=== PATIENT | male | born 1965 | race Two or more races ===

== ENCOUNTER 2016-10-17 03:18 | Inpatient (IN) | payer MEDICARE, MEDICAID ==
[~2016-10-17] VITALS: Ht 167.6 cm; Wt 69.9 kg
[2016-10-17 05:30] VITALS: BP 121/75
[2016-10-17 06:00] VITALS: BP 132/75
[2016-10-17] MEDS ORDERED: ACETAMINOPHEN 325 MG TABLET PO PRN (06:00)
[2016-10-17] MEDS ORDERED: ZOLPIDEM TARTRATE 5 MG TABLET PO PRN (06:00)
[2016-10-17] MEDS ORDERED: MAGNESIUM HYDROXIDE 30 ML UDC PO PRN (06:00)
[2016-10-17] MEDS ORDERED: MAG HYDROX/AL HYDROX/SIMETH 30 ML UDC PO PRN (06:00)
[2016-10-17] MEDS ORDERED: ONDANSETRON HCL/PF 4 MG/2 ML VIAL IVP PRN (06:00)
[2016-10-17] MEDS ORDERED: HYDROCODONE/APAP 5/325MG 1 EACH TABLET PO PRN (06:00)
[2016-10-17] MEDS ORDERED: Z GUARD REMEDY 2 OZ OINT TP PRN (06:00)
[2016-10-17 07:30] LABS: BASOPHILS % (AUTO) 0.2 % (0.0-2.0); DIFF TOTAL % 100 %; EOSINOPHILS # (AUTO) 0.1 /CMM (0.0-0.7); EOSINOPHILS % (AUTO) 0.7 % (0.0-6.0); HEMATOCRIT 33 % (39-51); HEMOGLOBIN 11.4 g/dL (13.5-17.5); LYMPHOCYTES # (AUTO) 3.1 /CMM (0.8-4.8); MEAN CORPUSCULAR HEMOGLOBIN 28 PG (26.0-33.0); MEAN CORPUSCULAR HGB CONC 34 g/dl (31.0-36.0); MEAN CORPUSCULAR VOLUME 82 fL (80-96); MONOCYTES # (AUTO) 0.8 /CMM (0.1-1.30); NEUTROPHILS # (AUTO) 5.3 /CMM (1.8-8.9); NEUTROPHILS % (AUTO) 57.1 % (43.0-81.0); PLATELET COUNT (AUTO) 231 /CMM (150-450); RED BLOOD CELL COUNT(AUTO) 4.07 MIL/uL (4.5-6.0); WHITE BLOOD COUNT (AUTO) 9.3 K/uL (4.3-11.0)
[2016-10-17 08:28] LABS: ALBUMIN 2.8 g/dL (3.4-5.0); BILIRUBIN,TOTAL 0.4 mg/dL (0.2-1.0); CALCIUM, SERUM 8.2 mg/dL (8.5-10.1); CREATININE 1.1 mg/dL (0.6-1.3); PHOSPHORUS 2.9 mg/dL (2.5-4.9); POTASSIUM 4.3 mmol/L (3.5-5.1)
[2016-10-17] MEDS ORDERED: IV SET PRIMARY PUMP SET 1 EA INFUS.SET MC ONE (11:34)
[2016-10-17] MEDS: AZITHROMYCIN 500 MG in IV D5W 250 ML IV SCH (11:53)
[2016-10-17] MEDS: CEFTRIAXONE 1 G in IV D5W 50 ML IV SCH (12:51)
[2016-10-17 16:00] VITALS: BP 109/62
[2016-10-17] MEDS: PANTOPRAZOLE 40 MG TABLET.DR PO SCH (16:50)
[2016-10-17 20:13] VITALS: BP 113/68
[2016-10-17 22:00] VITALS: BP 113/68
[2016-10-18 07:36] LABS: BASOPHILS % (AUTO) 0.3 % (0.0-2.0); DIFF TOTAL % 100 %; EOSINOPHILS # (AUTO) 0.4 /CMM (0.0-0.7); EOSINOPHILS % (AUTO) 5.1 % (0.0-6.0); HEMATOCRIT 37 % (39-51); HEMOGLOBIN 12.4 g/dL (13.5-17.5); LYMPHOCYTES # (AUTO) 2.8 /CMM (0.8-4.8); LYMPHOCYTES % (AUTO) 40.9 % (20.0-44.0); MEAN CORPUSCULAR HEMOGLOBIN 28 PG (26.0-33.0); MEAN CORPUSCULAR HGB CONC 34 g/dl (31.0-36.0); MEAN CORPUSCULAR VOLUME 82 fL (80-96); MONOCYTES # (AUTO) 0.6 /CMM (0.1-1.30); MONOCYTES % (AUTO) 8.8 % (2.0-12.0); NEUTROPHILS # (AUTO) 3.1 /CMM (1.8-8.9); NEUTROPHILS % (AUTO) 44.9 % (43.0-81.0); PLATELET COUNT (AUTO) 254 /CMM (150-450); RED BLOOD CELL COUNT(AUTO) 4.48 MIL/uL (4.5-6.0); WHITE BLOOD COUNT (AUTO) 6.9 K/uL (4.3-11.0)
[2016-10-18 07:37] LABS: CALCIUM, SERUM 8.7 mg/dL (8.5-10.1); CREATININE 1.2 mg/dL (0.6-1.3); PHOSPHORUS 2.4 mg/dL (2.5-4.9); POTASSIUM 4.3 mmol/L (3.5-5.1)
[2016-10-18 08:00] VITALS: BP 121/67
[2016-10-18] MEDS: PANTOPRAZOLE 40 MG TABLET.DR PO SCH (08:26)
[2016-10-18] MEDS ORDERED: IV SET PRIMARY PUMP SET 1 EA INFUS.SET MC ONE (09:54)
[2016-10-18] MEDS: AZITHROMYCIN 500 MG in IV D5W 250 ML IV SCH (09:54)
[2016-10-18] MEDS: CEFTRIAXONE 1 G in IV D5W 50 ML IV SCH (11:14)
[2016-10-18 16:00] VITALS: BP 122/76
[2016-10-18] MEDS ORDERED: K PHOS NEUTRAL 250 MG TABLET PO ONE (17:00)
[2016-10-18 20:00] VITALS: BP 126/68
[2016-10-18 20:03] VITALS: BP 126/68
[2016-10-19] MEDS: PANTOPRAZOLE 40 MG TABLET.DR PO SCH ×2 (06:52→09:50)
[2016-10-19 08:00] VITALS: BP 123/73
[2016-10-19 08:41] LABS: CALCIUM, SERUM 8.5 mg/dL (8.5-10.1); PHOSPHORUS 3.2 mg/dL (2.5-4.9); POTASSIUM 3.8 mmol/L (3.5-5.1)
[2016-10-19] MEDS: AZITHROMYCIN 500 MG in IV D5W 250 ML IV SCH (09:51)
[2016-10-19] MEDS: CEFTRIAXONE 1 G in IV D5W 50 ML IV SCH (12:35)
[2016-10-19 16:00] VITALS: BP 147/73
[2016-10-19 19:49] VITALS: BP 132/77
[2016-10-19 20:00] VITALS: BP 132/77
[2016-10-20 07:53] LABS: CALCIUM, SERUM 8.5 mg/dL (8.5-10.1); POTASSIUM 4.3 mmol/L (3.5-5.1)
[2016-10-20 08:00] VITALS: BP_SYST 129; BP_SYST 153; BP_DIAS 77; BP_DIAS 79
[2016-10-20] MEDS ORDERED: AZITHROMYCIN 250 MG TABLET PO SCH (09:00)
[2016-10-20] MEDS: CEFTRIAXONE 1 G in IV D5W 50 ML IV SCH (11:57)
[2016-10-20] MEDS ORDERED: METHADONE HCL 10 MG TABLET PO SCH (13:30)
[2016-10-20 16:00] VITALS: BP 139/82
[2016-10-20] MEDS ORDERED: LEVO750T21 PO (16:21)
== END 2016-10-20 19:00 | disposition home or self-care (01) | DRG 193 ==
LOC: TELE 05:26 → MED 09:53
PROVIDERS: ADMIT Internal Medicine; ATTEND Internal Medicine
DX: J15.9 Unspecified bacterial pneumonia (principal); G92 Toxic encephalopathy; E44.0 Moderate protein-calorie malnutrition; F11.20 Opioid dependence, uncomplicated; E86.0 Dehydration; D63.8 Anemia in other chronic diseases classified elsewhere; E11.9 Type 2 diabetes mellitus without complications; F17.210 Nicotine dependence, cigarettes, uncomplicated; K21.9 Gastro-esophageal reflux disease without esophagitis; J20.9 Acute bronchitis, unspecified; Z87.898 Personal history of other specified conditions; B35.1 Tinea unguium; Z86.19 Personal history of other infectious and parasitic diseases; Z68.24 Body mass index [BMI] 24.0-24.9, adult
CPT/HCPCS: 36415; 71010-TC; 80048-TC; 80053-TC; 83605-TC; 83735-TC; 84100-TC; 85025-TC; 87081-TC; J0456; J0696; J7060; Z7610